=== PATIENT | male | born 1960 | race Caucasian/White ===

== ENCOUNTER → 2016-11-26 | Outpatient (CLI) | payer MEDICARE ==
[~2016-11-26] MED LIST: ALDACTONE25 MG PO; BUMETANIDE1 MG PO; CORGARD40 M1 PO; DIFLUCAN200 MG PO; HYDR25T PO; KLOR-CON M2020 ME1 PO; LISINOPRIL10 M1 PO; NADOLOL40 MG PO; NORVIR100 M1 PO; PROTONIX40 MG PO; REYATAZ100 MG PO; REYATAZ300 MG PO; TRUVADA 200 MG-1 TA1 PO; TRUVADA 200 MG-1 TAB PO; ZOFRAN4 MG PO
[2016-11-26 13:44] LABS: BASO % 0.7 % (0.0-1.0); EOS # 0.1 10*3/uL (0.0-0.4); EOS % 2.1 % (1.0-4.0); HEMATOCRIT 40.1 % (42.0-52.0); HEMOGLOBIN 13.9 g/dl (14.0-18.0); LYMPH # 1.2 10*3/uL (1.3-4.4); LYMPH % 27.6 % (27.0-41.0); MEAN CELL VOLUME 92.8 fl (80.0-94.0); MEAN CORPUSCULAR HGB 32.2 pg (27.0-31.0); MEAN CORPUSCULAR HGB CONC 34.7 g/dl (33.0-37.0); MEAN PLATELET VOLUME 11.4 fl (9.6-12.3); MONO # 0.3 10*3/uL (0.1-1.0); MONO % 7.8 % (3.0-9.0); NEUT # 2.7 10*3/uL (2.3-7.9); NEUT % 61.6 % (47.0-73.0); PLATELET COUNT AUTOMATED 66 10*3/uL (130-400); RED BLOOD COUNT 4.32 10*6/uL (4.50-5.90); RED CELL DISTRI WIDTH 14.3 % (0-14.5); WHITE BLOOD COUNT 4.3 10*3/uL (4.8-10.8)
[2016-11-26 14:12] LABS: ALBUMIN 3.1 gm/dl (3.1-4.5); ALKALINE PHOSPHATASE 78 U/L (45-117); BILIRUBIN, TOTAL 1.3 mg/dl (0.2-1.0); BUN 11 mg/dl (7-24); CARBON DIOXIDE 29 mmol/L (21-32); CHLORIDE 110 mmol/L (98-107); EST GLOM FILT AFRICAN AMERICAN > 60 ml/min; GLUCOSE 82 mg/dL (65-99); POTASSIUM 4.1 mmol/L (3.5-5.1); SGOT/AST 31 IU/L (3-35); SGPT/ALT 24 U/L (12-78); SODIUM 145 mmol/L (136-145); TOTAL PROTEIN 6.7 gm/dL (6.4-8.2)
[2016-11-27 09:14] LABS: HEMATOCRIT 40.3 % (37.5-51.0); HEMATOLOGY COMMENT Note: (.); HEMOGLOBIN 13.8 g/dL (12.6-17.7); IMMATURE GRANULOCYTES 0 % (.); MCH 31.4 pg (26.6-33.0); MCHC 34.2 g/dL (31.5-35.7); MCV 92 fL (79-97); NEUTROPHILS 60 % (.); NEUTROPHILS (ABSOLUTE) 2.4 x10E3/uL (1.4-7.0); PLATELETS 73 x10E3/uL (150-379); RBC 4.39 x10E6/uL (4.14-5.80); RDW 14.1 % (12.3-15.4)
[2016-11-27 13:05] LABS: ABSOLUTE CD 4 HELPER 337 /uL (359-1519); CD 4 POS LYMPH, % 30.6 % (30.8-58.5)
== END | disposition home or self-care (01) ==
LOC: LAB 13:17
PROVIDERS: Internal Medicine Infectious Disease
DX: B20 Human immunodeficiency virus [HIV] disease (principal)

== ENCOUNTER → 2016-12-01 | Outpatient (CLI) | payer MEDICARE | END | disposition home or self-care (01) | LOC: RESCLI 02:46 | DX: I10 Essential (primary) hypertension (principal); N52.8 Other male erectile dysfunction; R60.0 Localized edema; Z21 Asymptomatic human immunodeficiency virus [HIV] infection status ==

== ENCOUNTER → 2017-02-19 | Outpatient (CLI) | payer MEDICARE ==
[2017-02-19 13:24] LABS: BASO % 0.9 % (0.0-1.0); EOS # 0.1 10*3/uL (0.0-0.4); EOS % 1.4 % (1.0-4.0); HEMOGLOBIN 14.5 g/dl (14.0-18.0); LYMPH # 0.9 10*3/uL (1.3-4.4); LYMPH % 19.9 % (27.0-41.0); MEAN CORPUSCULAR HGB 32.4 pg (27.0-31.0); MEAN CORPUSCULAR HGB CONC 34.5 g/dl (33.0-37.0); MEAN PLATELET VOLUME 11.2 fl (9.6-12.3); MONO # 0.4 10*3/uL (0.1-1.0); MONO % 8.3 % (3.0-9.0); NEUT % 69.3 % (47.0-73.0); PLATELET COUNT AUTOMATED 57 10*3/uL (130-400); RED BLOOD COUNT 4.47 10*6/uL (4.50-5.90); RED CELL DISTRI WIDTH 14.3 % (0-14.5); WHITE BLOOD COUNT 4.3 10*3/uL (4.8-10.8)
[2017-02-19 13:46] LABS: ALBUMIN 3.4 gm/dl (3.1-4.5); ALKALINE PHOSPHATASE 80 U/L (45-117); BUN 13 mg/dl (7-24); CARBON DIOXIDE 27 mmol/L (21-32); CHLORIDE 110 mmol/L (98-107); EST GLOM FILT AFRICAN AMERICAN > 60 ml/min; GLUCOSE 87 mg/dL (65-99); POTASSIUM 4.2 mmol/L (3.5-5.1); SGOT/AST 33 IU/L (3-35); SGPT/ALT 28 U/L (12-78); SODIUM 145 mmol/L (136-145)
[2017-02-20 07:04] LABS: HEMATOCRIT 40.8 % (37.5-51.0); HEMATOLOGY COMMENT Note: (.); HEMOGLOBIN 14.4 g/dL (12.6-17.7); IMMATURE GRANULOCYTES 0 % (.); MCH 32.1 pg (26.6-33.0); MCHC 35.3 g/dL (31.5-35.7); MCV 91 fL (79-97); NEUTROPHILS 67 % (.); NEUTROPHILS (ABSOLUTE) 2.9 x10E3/uL (1.4-7.0); PLATELETS 65 x10E3/uL (150-379); RBC 4.48 x10E6/uL (4.14-5.80); RDW 13.9 % (12.3-15.4); WBC 4.3 x10E3/uL (3.4-10.8)
[2017-02-20 11:04] LABS: ABSOLUTE CD 4 HELPER 234 /uL (359-1519); CD 4 POS LYMPH, % 29.2 % (30.8-58.5)
== END | disposition home or self-care (01) ==
LOC: LAB 12:57
PROVIDERS: Internal Medicine Infectious Disease
DX: B20 Human immunodeficiency virus [HIV] disease (principal); Z79.899 Other long term (current) drug therapy

== ENCOUNTER → 2017-03-01 | Outpatient (CLI) | payer MEDICARE | END | disposition home or self-care (01) | LOC: RESCLI 02:09 | DX: I10 Essential (primary) hypertension (principal); Z21 Asymptomatic human immunodeficiency virus [HIV] infection status; Z72.0 Tobacco use ==

== ENCOUNTER → 2017-05-25 | Outpatient (CLI) | payer MEDICARE ==
[2017-05-25 10:47] LABS: BASO % 1.1 % (0.0-1.0); EOS # 0.1 10*3/uL (0.0-0.4); EOS % 2.2 % (1.0-4.0); HEMATOCRIT 41.4 % (42.0-52.0); HEMOGLOBIN 13.9 g/dl (14.0-18.0); LYMPH # 0.7 10*3/uL (1.3-4.4); LYMPH % 19.7 % (27.0-41.0); MEAN CELL VOLUME 96.5 fl (80.0-94.0); MEAN CORPUSCULAR HGB 32.4 pg (27.0-31.0); MEAN CORPUSCULAR HGB CONC 33.6 g/dl (33.0-37.0); MEAN PLATELET VOLUME 11.5 fl (9.6-12.3); MONO # 0.3 10*3/uL (0.1-1.0); MONO % 7.8 % (3.0-9.0); NEUT # 2.6 10*3/uL (2.3-7.9); NEUT % 68.9 % (47.0-73.0); PLATELET COUNT AUTOMATED 70 10*3/uL (130-400); RED BLOOD COUNT 4.29 10*6/uL (4.50-5.90); RED CELL DISTRI WIDTH 14.7 % (0-14.5); WHITE BLOOD COUNT 3.7 10*3/uL (4.8-10.8)
[2017-05-25 11:03] LABS: ALBUMIN 3.7 gm/dl (3.1-4.5); ALKALINE PHOSPHATASE 90 U/L (45-117); BUN 26 mg/dl (7-24); CHLORIDE 107 mmol/L (98-107); CREATININE 1.26 mg/dL (0.70-1.30); POTASSIUM 4.1 mmol/L (3.5-5.1); SGOT/AST 40 IU/L (3-35); SGPT/ALT 28 U/L (12-78); SODIUM 140 mmol/L (136-145)
[2017-05-26 07:06] LABS: HEMATOCRIT 40.8 % (37.5-51.0); HEMOGLOBIN 13.5 g/dL (12.6-17.7); RBC 4.34 x10E6/uL (4.14-5.80)
[2017-05-26 13:08] LABS: ABSOLUTE CD 4 HELPER 263 /uL (359-1519); CD 4 POS LYMPH, % 32.9 % (30.8-58.5)
== END | disposition home or self-care (01) ==
LOC: LAB 09:56
PROVIDERS: Internal Medicine Infectious Disease
DX: B20 Human immunodeficiency virus [HIV] disease (principal)

== ENCOUNTER → 2017-08-30 | Outpatient (CLI) | payer MEDICARE ==
[2017-08-30 14:03] LABS: EOS # 0.1 10*3/uL (0.0-0.4); EOS % 2.6 % (1.0-4.0); HEMATOCRIT 36.7 % (42.0-52.0); HEMOGLOBIN 12.4 g/dl (14.0-18.0); LYMPH # 0.8 10*3/uL (1.3-4.4); LYMPH % 20.1 % (27.0-41.0); MEAN CELL VOLUME 93.6 fl (80.0-94.0); MEAN CORPUSCULAR HGB 31.6 pg (27.0-31.0); MEAN CORPUSCULAR HGB CONC 33.8 g/dl (33.0-37.0); MEAN PLATELET VOLUME 11.1 fl (9.6-12.3); MONO # 0.3 10*3/uL (0.1-1.0); MONO % 8.7 % (3.0-9.0); NEUT # 2.6 10*3/uL (2.3-7.9); NEUT % 66.3 % (47.0-73.0); PLATELET COUNT AUTOMATED 72 10*3/uL (130-400); RED BLOOD COUNT 3.92 10*6/uL (4.50-5.90); RED CELL DISTRI WIDTH 14.1 % (0-14.5); WHITE BLOOD COUNT 3.9 10*3/uL (4.8-10.8)
[2017-08-30 14:16] LABS: ALBUMIN 3.5 gm/dl (3.1-4.5); ALKALINE PHOSPHATASE 92 U/L (45-117); BUN 17 mg/dl (7-24); CHLORIDE 108 mmol/L (98-107); POTASSIUM 4.2 mmol/L (3.5-5.1); SGOT/AST 35 IU/L (3-35); SGPT/ALT 38 U/L (12-78); SODIUM 141 mmol/L (136-145); TOTAL PROTEIN 7.4 gm/dL (6.4-8.2)
[2017-08-31 09:07] LABS: HEPATITIS B SURFACE AG Negative (Negative)
[2017-08-31 11:05] LABS: HEMATOCRIT 35.1 % (37.5-51.0); HEMOGLOBIN 12.5 g/dL (13.0-17.7); RBC 3.96 x10E6/uL (4.14-5.80); WBC 3.8 x10E3/uL (3.4-10.8)
[2017-08-31 15:06] LABS: ABSOLUTE CD 4 HELPER 294 /uL (359-1519); CD 4 POS LYMPH, % 36.7 % (30.8-58.5)
[2017-09-01 15:06] LABS: HIV-1 RNA BY PCR <20 (.)
[2017-09-03 03:10] LABS: MITOGEN VALUE >10.00 IU/mL (.); TB Ag MINUS NIL VALUE <0.00 IU/mL (.); TB Ag VALUE 0.07 IU/mL (.); TB GOLD Negative (Negative)
[2017-09-03 07:39] LABS: HEPATITIS C VIRUS ANTIBODY >11.0 s/co (0.0-0.9)
[2017-09-08 12:07] LABS: HLA B 57:01 Positive (.)
== END | disposition home or self-care (01) ==
LOC: RESCLI 03:01 → LAB 03:01 → RESCLI 11:29
PROVIDERS: Internal Medicine Infectious Disease
DX: B20 Human immunodeficiency virus [HIV] disease (principal); R11.2 Nausea with vomiting, unspecified; R06.89 Other abnormalities of breathing; R17 Unspecified jaundice

== ENCOUNTER → 2017-09-03 | Outpatient (CLI) | payer MEDICARE | END | disposition home or self-care (01) | LOC: US 02:15 → CARD 11:30 | DX: R60.0 Localized edema (principal); M79.89 Other specified soft tissue disorders; R06.89 Other abnormalities of breathing ==

== ENCOUNTER → 2017-09-13 | Outpatient (CLI) | payer MEDICARE | END | disposition home or self-care (01) | LOC: RESCLI 02:14 | DX: Z21 Asymptomatic human immunodeficiency virus [HIV] infection status (principal); I10 Essential (primary) hypertension; M79.89 Other specified soft tissue disorders; R06.89 Other abnormalities of breathing; I51.7 Cardiomegaly; Z72.0 Tobacco use ==

== ENCOUNTER → 2017-09-28 | Outpatient (CLI) | payer MEDICARE | END | disposition home or self-care (01) | LOC: RESCLI 00:39 | DX: Z21 Asymptomatic human immunodeficiency virus [HIV] infection status (principal); I10 Essential (primary) hypertension; M79.89 Other specified soft tissue disorders; R06.89 Other abnormalities of breathing; I51.7 Cardiomegaly; Z72.0 Tobacco use ==

== ENCOUNTER → 2017-09-30 | Outpatient (CLI) | payer MEDICARE | END | disposition home or self-care (01) | LOC: CT 09-16 09:00 | DX: K80.20 Calculus of gallbladder without cholecystitis without obstruction (principal); K74.60 Unspecified cirrhosis of liver; R06.89 Other abnormalities of breathing; R06.02 Shortness of breath; R60.0 Localized edema ==

== ENCOUNTER 2020-03-14 09:27 | Emergency (ER) | payer MEDICARE ==
[~2020-03-14] VITALS: Ht 177.8 cm; Wt 99.8 kg
[2020-03-14 10:20] LABS: BASO # 0.1 10*3/uL (0.0-0.1); BASO % 1.6 % (0.0-1.0); EOS # 0.1 10*3/uL (0.0-0.4); HEMATOCRIT 40.1 % (42.0-52.0); LYMPH # 0.9 10*3/uL (1.3-4.4); LYMPH % 20.7 % (27.0-41.0); MEAN CELL VOLUME 96.2 fl (80.0-94.0); MEAN CORPUSCULAR HGB 32.1 pg (27.0-31.0); MEAN CORPUSCULAR HGB CONC 33.4 g/dl (33.0-37.0); MEAN PLATELET VOLUME 12.6 fl (9.6-12.3); MONO # 0.5 10*3/uL (0.1-1.0); MONO % 11.1 % (3.0-9.0); NEUT # 2.8 10*3/uL (2.3-7.9); NEUT % 64.4 % (47.0-73.0); PLATELET COUNT AUTOMATED 64 10*3/uL (130-400); RED BLOOD COUNT 4.17 10*6/uL (4.50-5.90); RED CELL DISTRI WIDTH 14.2 % (0-14.5); WHITE BLOOD COUNT 4.4 10*3/uL (4.8-10.8)
[2020-03-14 10:32] LABS: ACT PARTIAL THROMBO TIME 24.4 SECONDS (20.0-32.1); INTERNATIONAL NORM RATIO 1.1 (2.0-3.5)
[2020-03-14 10:38] LABS: ALBUMIN 3.4 gm/dl (3.1-4.5); ALKALINE PHOSPHATASE 71 U/L (45-117); BUN 27 mg/dl (7-24); CHLORIDE 113 mmol/L (98-107); CREATININE 1.09 mg/dL (0.70-1.30); POTASSIUM 4.3 mmol/L (3.5-5.1); SGOT/AST 36 IU/L (3-35); SGPT/ALT 29 U/L (12-78); SODIUM 142 mmol/L (136-145); TOTAL PROTEIN 7.2 gm/dL (6.4-8.2)
[2020-03-14 10:52] LABS: ETHYL ALCOHOL < 3.0 mg/dl (<3)
[2020-03-14 10:54] LABS: URINE AMPHETAMINES < 1000 (1000ng/ml); URINE BARBITURATES < 200 (200ng/ml); URINE BENZODIAZEPINES < 200 (200ng/ml); URINE CANNABINOIDS (THC) < 50 (50ng/ml); URINE COCAINE < 300 (300ng/ml); URINE METHADONE < 300 (300ng/ml); URINE OPIATES < 300 (300ng/ml)
[2020-03-14 10:55] LABS: ACETAMINOPHEN (TYLENOL) < 5.0 ug/ml (10-30); TROPONIN I < 0.015 ng/ml (<0.045)
[2020-03-14 10:55] LABS: URINE PHENCYCLIDINE < 25 (25ng/ml)
[2020-03-14 11:01] LABS: COLOR YELLOW (YELLOW)
[2020-03-14 11:02] LABS: BILIRUBIN NEGATIVE (NEGATIVE); BLOOD NEGATIVE (NEGATIVE); CLARITY CLEAR (CLEAR); GLUCOSE NEGATIVE (NEGATIVE); KETONE NEGATIVE (NEGATIVE); LEUKO ESTERASE NEGATIVE (NEGATIVE); NITRITE NEGATIVE (NEGATIVE); SPECIFIC GRAVITY 1.015 (1.005-1.030); UROBILINOGEN 0.2 E.U./dl (0.2-1.0); WBC 0-2 wbc/hpf (0-5)
== END 2020-03-14 12:18 | disposition home or self-care (01) ==
LOC: ED 09:27
PROVIDERS: Emergency Medicine
DX: M79.605 Pain in left leg (principal); M79.89 Other specified soft tissue disorders; Z04.6 Encounter for general psychiatric examination, requested by authority; Z88.8 Allergy status to other drugs, medicaments and biological substances; Z79.899 Other long term (current) drug therapy